=== PATIENT | female | born 2000 | race Caucasian/White ===

== ENCOUNTER 2023-03-30 11:00 | Outpatient (CLI) | payer OTHER, SELFPAY ==
[2023-03-30 11:10] LABS: Bacteria Urine Moderate; Squamous Epithelial Cell Urine Moderate (None-Few)
== END 2023-03-30 11:01 | disposition home or self-care (01) ==
LOC: NFLDUCREF 11:01
PROVIDERS: Visit Provider Registered Nurse
DX: N39.0 Urinary tract infection, site not specified (principal)
CPT/HCPCS: 81015; 87086